=== PATIENT | female | born 1985 ===

== ENCOUNTER 2017-10-23 19:44 | Emergency (ER) | payer MEDICARE, MEDICAID ==
[2017-10-23 19:56] VITALS: TEMP 98.3
[2017-10-23] MEDS ORDERED: Sodium Chloride 0.9% 1,000 ML ONE (20:09)
[2017-10-23] MEDS ORDERED: Sodium Chloride 0.9% 1,000 ML IV ONE (20:15)
[2017-10-23 20:29] VITALS: RESP 18
[2017-10-23 20:34] LABS: PROTHROMBIN TIME 11.5 SECONDS (9.7-12.2)
[2017-10-23 20:36] LABS: SQUAMOUS EPITHIAL 7 /hpf (0-5); URINE BACTERIA OCC (<OCC); URINE BILIRUBIN NEGATIVE (NEGATIVE); URINE BLOOD NEGATIVE (NEGATIVE); URINE CLARITY Hazy (Clear); URINE COLOR Yellow (YELLOW); URINE GLUCOSE (UA) NORMAL (Normal); URINE LEUKOCYTE ESTERASE NEG Leu/uL (Negative); URINE PROTEIN NEGATIVE (NEGATIVE); URINE UROBILINOGEN NORMAL mg/dL (0.2-1.0)
[2017-10-23 20:42] LABS: ALB/GLOB RATIO 0.9 (1.0-2.1); ALBUMIN 3.7 g/dL (3.5-5.0); ALT/SGPT 9 U/L (9-52); AST/SGOT 19 U/L (14-36); BLOOD UREA NITROGEN 7 mg/dL (7-17); CALCIUM 9.5 mg/dl (8.6-10.4); GFR AFRICAN-AMERICAN > 60; GFR NON-AFRICAN AMERICAN > 60
[2017-10-23 20:49] LABS: BASO # 0.1 K/uL (0.0-0.2); BASO % 0.6 % (0.0-2.0); EOS # 0.3 K/uL (0.0-0.7); EOS % 2.4 % (0.0-4.0); HEMOGLOBIN 12.1 g/dL (11.0-16.0); LYMPH # 3.5 K/uL (1.0-4.3); LYMPH % 26.2 % (20.0-40.0); MEAN CELL VOLUME 86.5 fL (81.0-99.0); MEAN CORPUSCULAR HEMOGLOBIN 29.8 pg (27.0-31.0); MEAN CORPUSCULAR HGB CONC 34.5 g/dL (33.0-37.0); MEAN PLATELET VOLUME 7.6 fL (7.2-11.7); MONO # 0.8 K/uL (0.0-0.8); MONO % 5.8 % (0.0-10.0); NEUT # 8.8 K/uL (1.8-7.0); NRBC % 0.1 % (0.0-2.0); RBC 4.05 Mil/uL (3.80-5.20); RED CELL DISTRIBUTION WIDTH 14.5 % (11.5-14.5); WHITE BLOOD COUNT 13.6 K/uL (4.8-10.8)
--- NOTE | 2017-10-23 21:15 | C.PDOC ---
Chief Complaint (Nursing): Abdominal Pain Past Medical History Vital Signs: Last Vital Signs Temp 98.3 F 10/23/17 19:52 Pulse 86 10/23/17 20:27 Resp 18 10/23/17 20:27 BP 94/56 L 10/23/17 20:27 Pulse Ox 99 10/23/17 20:27 - Medical History PMH: Asthma - Social History Hx Alcohol Use: No Hx Substance Use: No - Immunization History Hx Tetanus Toxoid Vaccination: Yes Hx Influenza Vaccination: No Hx Pneumococcal Vaccination: No ED Course And Treatment - Laboratory Results Result Diagrams: 10/23/17 20:22 10/23/17 20:22 O2 Sat by Pulse Oximetry: 99 Disposition - Disposition
--- NOTE | 2017-10-23 21:15 | C.PDOC ---
History Of Present Illness 31 year old female with PMHx of epidural induced headache presents to the ED c/ o generalized headache, neck and back pain that started today at 13:00. Patient is approximately 12 weeks , has had prior US before revealing intrauterine as per patient. Patient is also c/o vague abdominal cramping. Patient has not taken any medication for her pain. Patient denies vomiting, URI, fever, chills. Chief Complaint (Nursing): Abdominal Pain History Per: Patient History/Exam Limitations: no limitations Onset/Duration Of Symptoms: Hrs Current Symptoms Are (Timing): Still Present Location Of Pain/Discomfort: Diffuse Radiation Of Pain To:: Back Quality Of Discomfort: Cramping Associated Symptoms: Back Pain Exacerbating Factors: Movement Alleviating Factors: None Recent travel outside of the [place]: No Additional History Per: Patient Abnormal Vaginal Bleeding: No Past Medical History Reviewed: Historical Data, Nursing Documentation, Vital Signs Vital Signs: Last Vital Signs Temp 98.3 F 10/24/17 00:28 Pulse 74 10/24/17 00:28 Resp 18 10/24/17 00:28 BP 96/57 L 10/24/17 00:28 Pulse Ox 99 10/24/17 00:42 - Medical History PMH: Asthma Other PMH: epidural induced headaches Surgical History: No Surg Hx Family History: States: Unknown Family Hx - Social History Hx Alcohol Use: No Hx Substance Use: No - Immunization History Hx Tetanus Toxoid Vaccination: Yes Hx Influenza Vaccination: No Hx Pneumococcal Vaccination: No Review Of Systems Constitutional: Negative for: Fever, Chills Cardiovascular: Negative for: Chest Pain Respiratory: Negative for: Shortness of Breath Gastrointestinal: Positive for: Abdominal Pain. Negative for: Nausea, Vomiting Musculoskeletal: Positive for: Neck Pain, Back Pain Neurological: Positive for: Headache. Negative for: Weakness, Numbness, Dizziness Physical Exam - Physical Exam Appears: Non-toxic, In Acute Distress Skin: Normal Color, Warm, Dry Head: Atraumatic, Normacephalic Eye(s): bilateral: Normal Inspection Nose: No Discharge Oral Mucosa: Moist Neck: Normal ROM, No Midline Cervical Tenderness, Supple Chest: Symmetrical Cardiovascular: Rhythm Regular, No Murmur Respiratory: Normal Breath Sounds, No Rales, No Rhonchi, No Wheezing Gastrointestinal/Abdominal: Soft, No Tenderness, No Guarding, No Rebound Extremity: Normal ROM, No Tenderness, No Swelling Pulses: Left Dorsalis Pedis: Normal, Right Dorsalis Pedis: Normal Neurological/Psych: Oriented x3, Normal Speech, Normal Motor, Normal Sensation, Normal Reflexes Gait: Steady ED Course And Treatment - Laboratory Results Result Diagrams: 10/23/17 20:22 10/23/17 20:22 O2 Sat by Pulse Oximetry: 99 (On RA) Pulse Ox Interpretation: Normal - CT Scan/US Pelvic US Other Rad Studies (CT/US): Read By Radiologist, Radiology Report Reviewed CT/US Interpretation: EXAM: US First Trimester, Transabdominal. CLINICAL HISTORY: 31 years old, female; Pain; Other: Pelvic pain / back pain; Gestational age or lmp: 1-15-18; ;. Prior surgery; Surgery date: 6+ months; Surgery type: 2 c-sections. TECHNIQUE: Real-time transabdominal obstetrical ultrasound of the maternal pelvis with image documentation. COMPARISON: No relevant prior studies available. FINDINGS: Gestation: There is a single living intrauterine . Measurements correlate with a mean. gestational age of 13 weeks 2 days. Embryonic/ cardiac activity is identified, at a rate of 159. beats per minute. The estimated date of delivery is 04/28/2018. Placenta/amniotic fluid: The placenta is located posteriorly and is normal. Uterus/cervix: Unremarkable. No myometrial mass. The cervix is closed. Ovaries: The right ovary measures 3.1 x 2.7 x 2.3 cm and the left ovary measures 2.5 x 1.7 x 2.6 cm. No mass. 1.6 x 1.8 cm cyst in the right ovary, possible corpus luteum cyst. Free fluid: No free fluid. IMPRESSION: Live intrauterine , with no evidence of early complications Medical Decision Making Medical Decision Making: Impression: headache, neck and back pain Plan: * Labs * IV fluids * Tylenol 975 mg PO * UA * Pelvic US Disposition - Disposition Referrals: [facility] [Outside] Disposition: HOME/ ROUTINE Disposition Time: 05:21 Condition: FAIR Prescriptions: Cephalexin [Keflex] 500 mg PO TID #21 capsule Instructions: Urinary Tract Infections in Adults Forms: [facility] (Vietnamese) Print Language: URUGUAYAN - Clinical Impression Clinical Impression: UTI (urinary tract infection) - Scribe Statement The provider has reviewed the documentation as recorded by the Scribe Vicente Willis All medical record entries made by the Scribe were at my direction and personally dictated by me. I have reviewed the chart and agree that the record accurately reflects my personal performance of the history, physical exam, medical decision making, and the department course for this patient. I have also personally directed, reviewed, and agree with the discharge instructions and disposition.
[2017-10-24 00:28] VITALS: BP 96/57; PULSE 74
--- NOTE | 2017-10-24 00:41 | US ---
EXAM: US First Trimester, Transabdominal CLINICAL HISTORY: 31 years old, female; Pain; Other: Pelvic pain / back pain; Gestational age or lmp: 1-15-18; ; Prior surgery; Surgery date: 6+ months; Surgery type: 2 c-sections TECHNIQUE: Real-time transabdominal obstetrical ultrasound of the maternal pelvis with image documentation. COMPARISON: No relevant prior studies available. FINDINGS: Gestation: There is a single living intrauterine . Measurements correlate with a mean gestational age of 13 weeks 2 days. Embryonic/ cardiac activity is identified, at a rate of 159 beats per minute. The estimated date of delivery is 04/28/2018. Placenta/amniotic fluid: The placenta is located posteriorly and is normal. Uterus/cervix: Unremarkable. No myometrial mass. The cervix is closed. Ovaries: The right ovary measures 3.1 x 2.7 x 2.3 cm and the left ovary measures 2.5 x 1.7 x 2.6 cm. No mass. 1.6 x 1.8 cm cyst in the right ovary, possible corpus luteum cyst. Free fluid: No free fluid. IMPRESSION: Live intrauterine , with no evidence of early complications.
[2017-10-24 00:42] VITALS: O2SAT 99
== END 2017-10-24 00:42 | disposition home or self-care (01) ==
LOC: C.ER 19:44
DX: O23.41 Unspecified infection of urinary tract in pregnancy, first trimester (principal); Z3A.13 13 weeks gestation of pregnancy
CPT/HCPCS: 76801; 80053; 81001; 83735; 84702; 85025; 85610; 85730; 86850; 86900; 96360; 99285; J7040